=== PATIENT | female | born 1995 | race Two or more races ===

== ENCOUNTER 2022-10-08 11:38 | Observation (INO) | payer MEDICAID ==
[2022-10-08] MEDS ORDERED: PREN-96 PO (12:36)
== END 2022-10-08 12:53 | disposition home or self-care (01) ==
LOC: LDRP 11:38 → UNDOADMOB 11:38 → LDRP 11:42 → UNDODISOB 12:53
PROVIDERS: ADMIT Obstetrics & Gynecology; ATTEND Obstetrics & Gynecology
DX: O62.9 Abnormality of forces of labor, unspecified (principal); Z3A.39 39 weeks gestation of pregnancy
CPT/HCPCS: 59025; 76815; 81002; G0378